=== PATIENT | male | born 1950 | race American Indian/Alaskan Native ===

== ENCOUNTER 2016-10-24 10:43 | Outpatient (CLI) | payer BC, MEDICARE ==
[2016-10-24 11:26] LABS: Blood Urea Nitrogen 12 mg/dL (9-20)
--- NOTE | 2016-10-24 15:31 | Magnetic Resonance Report ---
MRI scan of brain: History: Left lower extremity weakness. Technique: Multiplanar multisequence images were obtained without and with IV contrast. Findings: No evidence of restricted diffusion. Ventricles are normal in size and midline in location. No evidence of acute ischemia hemorrhage or mass. No extra-axial fluid collection. Normal brainstem and cerebellum. Normal sinuses and mastoid air cells. Impression: No acute intracranial abnormality.
== END 2016-10-24 10:44 | disposition home or self-care (01) ==
LOC: MRI 10:43
PROVIDERS: ATTEND Family Medicine
DX: R53.1 Weakness (principal); I10 Essential (primary) hypertension
CPT/HCPCS: 36415; 70553; 82565; 84520; A9577

== ENCOUNTER 2017-05-21 16:33 | Outpatient (CLI) | payer MEDICARE ==
[2017-05-21 17:04] LABS: Blood Urea Nitrogen 11 mg/dL (9-20)
--- NOTE | 2017-05-23 09:56 | Magnetic Resonance Report ---
MR LOWER EXTREMITY JOINT LEFT WITH AND WITHOUT CONTRAST History: Left hip pain. Technique: Multisequence, multiplanar MRI before and after IV gadolinium was performed through the left hip. Findings: No comparison. There is near complete superior joint space loss at the left hip. Articular surface sclerosis and multiple subchondral cysts are noted in the left femoral head and left acetabulum. This has the appearance of moderate to severe osteoarthritis. There is moderate left hip effusion. The T1 images suggest an approximate 1.5 x 1.0 cm area of possible osteonecrosis in the superior left femoral head. It is unclear if these findings are secondary to the advanced degenerative changes or focal osteonecrosis. No evidence for fracture, bone lesion, or dislocation. The labrum is poorly visualized with no obvious defect. Surrounding musculature is within normal limits. No evidence for abnormal enhancement following IV gadolinium. IMPRESSION: Advanced osteoarthritic changes at the left hip. Questionable small area of osteonecrosis in the superior left femoral head.
--- NOTE | 2017-05-23 10:05 | Magnetic Resonance Report ---
MRI LUMBAR SPINE WITH AND WITHOUT CONTRAST HISTORY: Low back pain. TECHNIQUE: axial T1, T2. sagittal T1,T2, STIR. COMPARISON: none. FINDINGS: The conus terminates at L1. No signal abnormality or mass. The cauda equina is within normal limits. 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 There is mild disc desiccation at L2-3 and L4-5. No large bulging disc or herniation. Mild to moderate facet arthropathy is identified at all levels. Mild diffuse thickening of the ligamentum flavum. No significant neural foraminal narrowing is demonstrated. There is normal bone marrow signal throughout the lumbar spine. No evidence for fracture, bone lesion or abnormal enhancement following IV gadolinium. IMPRESSION: No evidence for fracture, malalignment or abnormal enhancement. Mild degenerative disc disease at L2-3 and L4-5. Mild to moderate diffuse facet arthropathy. There is no evidence for focal bulging disc or herniation, however, there does appear to be mild central canal narrowing at L2-3, L3-4 and L4-5 secondary to congenital short pedicles.
== END 2017-05-21 16:34 | disposition home or self-care (01) ==
LOC: MRI 16:33
PROVIDERS: ATTEND Family Medicine
DX: M16.12 Unilateral primary osteoarthritis, left hip (principal); M51.36 Other intervertebral disc degeneration, lumbar region; M54.16 Radiculopathy, lumbar region
CPT/HCPCS: 36415; 72158; 73723; 82565; 84520; A9577

== ENCOUNTER 2017-06-29 11:18 | Outpatient (CLI) | payer MEDICARE ==
--- NOTE | 2017-06-29 19:22 | XRay Report ---
FINAL REPORT PROCEDURE: XR HIP 2-3V LT TECHNIQUE: LEFT hip radiographs, 2 views each, including AP view of the pelvis. HISTORY: BALL CALIBRATION. Hip pain. COMPARISON: No prior studies are available for comparison. FINDINGS: Subchondral cyst formation is seen in the roof of the left acetabulum measuring up to 14 millimeters in size. Smaller subchondral cysts appear to be present in the left femoral head. There is narrowing of the left hip joint space superiorly. There is sclerosis of the opposing surfaces. No fracture or dislocation is seen. There is sclerosis of the right hip and minimal subchondral cyst formation laterally in the acetabulum. Right hip joint otherwise well preserved. Mild degenerative changes seen in the SI joints bilaterally per IMPRESSION: Moderate osteoarthritic changes left hip. No fracture or subluxation is seen. Mild osteoarthritic changes right hip and SI joints.
== END 2017-06-29 11:19 | disposition home or self-care (01) ==
LOC: XRAY 11:18
PROVIDERS: ATTEND Orthopaedic Surgery
DX: M16.0 Bilateral primary osteoarthritis of hip (principal); M25.852 Other specified joint disorders, left hip

== ENCOUNTER 2017-10-06 10:58 | Outpatient (CLI) | payer MEDICARE ==
--- NOTE | 2017-10-06 12:08 | XRay Report ---
LEFT HIP, 2 views: History: Pain in left hip. Findings: Left hip arthroplasty changes are identified which appear stable since 07/19/17. There is no evidence for acute fracture or, dislocation, loosening or infection. The soft tissues are unremarkable. IMPRESSION: Stable appearance of the left hip replacement.
== END 2017-10-06 10:59 | disposition home or self-care (01) ==
LOC: XRAY 10:58
PROVIDERS: ATTEND Orthopaedic Surgery
DX: M25.552 Pain in left hip (principal); I10 Essential (primary) hypertension; E78.00 Pure hypercholesterolemia, unspecified; E03.9 Hypothyroidism, unspecified; F17.210 Nicotine dependence, cigarettes, uncomplicated; Z96.642 Presence of left artificial hip joint

== ENCOUNTER 2017-12-23 12:24 | Outpatient (CLI) | payer MEDICARE ==
--- NOTE | 2017-12-23 13:47 | XRay Report ---
LEFT HIP, 2 views: History: Pain in left hip. Left hip prosthesis is unchanged in position and alignment since 10/06/17. No evidence for fracture, loosening or dislocation. The soft tissues are unremarkable. IMPRESSION: Stable appearance of the left hip prosthesis.
== END 2017-12-23 12:25 | disposition home or self-care (01) ==
LOC: XRAY 12:24
PROVIDERS: ATTEND Orthopaedic Surgery
DX: M25.552 Pain in left hip (principal); I10 Essential (primary) hypertension; E78.00 Pure hypercholesterolemia, unspecified; K21.9 Gastro-esophageal reflux disease without esophagitis; E66.9 Obesity, unspecified; Z87.891 Personal history of nicotine dependence; Z96.642 Presence of left artificial hip joint

== ENCOUNTER 2020-09-26 12:31 | Day surgery (SDC) | payer MEDICARE ==
[2020-09-21 11:12] LABS: Hematocrit 45.2 % (35.5-45.6); Hemoglobin 15.4 gm/dl (11.8-15.2); Mean Corpuscular HGB Conc 34 % (32-34); Mean Corpuscular Volume 89 fl (84-94); Platelet Count 289 K/mm3 (140-440); Red Blood Count 5.09 M/mm3 (3.65-5.03); Red Cell Distribution Width 13.7 % (13.2-15.2)
[2020-09-21 11:26] LABS: Alanine Aminotransferase 36 units/L (7-56); Albumin 4.7 g/dL (3.9-5); BUN/Creatinine Ratio 11; Blood Urea Nitrogen 10 mg/dL (9-20); Calcium 10.1 mg/dL (8.4-10.2); Hemolysis Index 20
[2020-09-26] MEDS ORDERED: LACTATED RINGERS 1,000 ML IV SCH (13:00)
[2020-09-26] MEDS ORDERED: ACETAMINOPHEN 500 MG TAB PO SCH (13:13)
[2020-09-26] MEDS ORDERED: MIDAZOLAM 2 MG/2 ML INJ IV NR (13:13)
[2020-09-26] MEDS ORDERED: CELECOXIB 200 MG CAP PO NR (13:13)
--- NOTE | 2020-09-26 13:20 | Anesthesia Day of Surgery ---
Anesthesia Day of Surgery - Day of Surgery Patient Examined: Yes Patient H&P Reviewed: Yes Patient is NPO: Yes
--- NOTE | 2020-09-26 13:22 | Anesthesia Consultation ---
Anesthesia Consult and Med Hx Date of service: 09/26/20 - Airway Anesthetic Teeth Evaluation: Good ROM Head & Neck: Adequate Mental/Hyoid Distance: Adequate Mallampati Class: Class II Intubation Access Assessment: Good - Pre-Operative Health Status ASA Pre-Surgery Classification: ASA2 Proposed Anesthetic Plan: General - Pulmonary Hx Smoking: Yes (STOPPED 11/2019-1 PPD X 42 YRS) Hx Asthma: No SOB: No (PURI) COPD: Yes (PER OLD CHART- PT DENIES) Hx Sleep Apnea: No (YAMILEX PRE SCREEN HIGH RISK) - Cardiovascular System Hx Hypertension: Yes (X 42 YRS) - Central Nervous System Hx Seizures: No CVA: No Hx Back Pain: Yes Hx Psychiatric Problems: No - Gastrointestinal Hx Gastroesophageal Reflux Disease: Yes (Rare) - Endocrine Hx Cirrhosis: No Hx Non-Insulin Dependent Diabetes: No Hx Hypothyroidism: No - Hematic Hx Anemia: No Hx Sickle Cell Disease: No - Other Systems Hx Cancer: No Hx Obesity: Yes
[2020-09-26] MEDS ORDERED: propofoL 200 MG/20 ML VIAL IV ONE (13:28)
[2020-09-26] MEDS ORDERED: LIDOCAINE MPF (2%) 20 MG/1 ML VIAL 5 ML ONE (13:28)
[2020-09-26] MEDS ORDERED: HYDROmorphone 1 MG/1 ML INJ ONE ×2 (13:28→15:39)
[2020-09-26] MEDS ORDERED: ACETAMINOPHEN 500 MG TAB ONE (13:30)
[2020-09-26] MEDS ORDERED: CELECOXIB 200 MG CAP ONE (13:30)
[2020-09-26] MEDS ORDERED: MIDAZOLAM 2 MG/2 ML INJ ONE (13:31)
[2020-09-26] MEDS ORDERED: ceFAZolin/Water 2 GM/20 ML 2 GM/20 ML SYRINGE IV NR (14:00)
[2020-09-26] MEDS ORDERED: ceFAZolin/Water 2 GM/20 ML 2 GM/20 ML SYRINGE IV ONE (14:00)
[2020-09-26] MEDS ORDERED: BUPIVACAINE/PF (0.25%) 2.5 MG/ML 30 ML VIAL INFILTRATI ONE (14:03)
[2020-09-26] MEDS ORDERED: NEOMY 3.5 MG/BACIT 400 UNITS/POLY B 5000 UNITS/GM OINT PACKET TP ONE (14:03)
--- NOTE | 2020-09-26 14:18 | Discharge Summary ---
Short Stay Discharge Plan Activity: other (no sex no straining ) Weight Bearing Status: Full Weight Bearing Diet: low fat, low cholesterol, low salt Wound: open to air Special Instructions: other (ice in rr remove dressing tonight ) Follow up with: FABI RIOS MD [Primary Care Provider] - 7 Days RED THOMPSON MD [Staff Physician] - 7 Days
--- NOTE | 2020-09-26 14:19 | Post Operative Note ---
Date of procedure: 09/26/20 Pre-op diagnosis: phimosis Post-op diagnosis: same Findings: inflammation Procedure: circ Anesthesia: GETA Surgeon: RED THOMPSON Estimated blood loss: minimal Pathology: list (skin) Specimen disposition: to lab
[2020-09-26] MEDS ORDERED: BUPIVACAINE/PF (0.25%) 2.5 MG/ML 10 ML VIAL INFILTRATI ONE (14:46)
[2020-09-26] MEDS ORDERED: SODIUM CHLORIDE 0.9% IRR 1,500 ML BOTTLE IR ONE (14:47)
[2020-09-26] MEDS ORDERED: NEOMY 3.5 MG/BACIT 400 UNITS/POLY B 5000 UNITS OINT 15 GM TP ONE (14:47)
[2020-09-26] MEDS ORDERED: ONDANSETRON 4 MG/2 ML INJ ONE (15:12)
[2020-09-26] MEDS ORDERED: KETOROLAC 30 MG/1 ML INJ ONE (15:12)
[2020-09-26] MEDS ORDERED: HYDROmorphone 1 MG/1 ML INJ IV PRN (16:30)
--- NOTE | 2020-09-26 17:06 | Post Anesthesia Evaluation ---
- Post Anesthesia Evaluation Patient Participated: Yes Airway Patent: Yes Stable Respiratory Function: Yes Nausea/Vomiting: No Temp > 96.8F: Yes Pain Manageable: Yes Adequeate Hydration: Yes Anesthesia Complications: No Block Receding Appropriately: Not Applicable Patient on Ventilator: No
[2020-09-26 17:22] VITALS: BP 144/99
--- NOTE | 2020-09-26 17:28 | Operative Report ---
DATE OF SURGERY: 09/26/2020 PREOPERATIVE DIAGNOSES: Severe phimosis, balanitis with cracking and bleeding of the inner foreskin. POSTOPERATIVE DIAGNOSES: Severe phimosis, balanitis with cracking and bleeding of the inner foreskin. PROCEDURES: Circumcision, sleeve technique. SURGEON: Dr. Martini. ANESTHESIA: General. FINDINGS: This is a gentleman with bleeding and cracking of the foreskin. Now presents for circumcision. He has scars in the inner foreskin. DESCRIPTION OF PROCEDURE: The patient was brought to the operating table. Following induction of anesthesia, placed in the supine position, prepped and draped in usual sterile fashion. Two circumferential incisions were marked out and incised. This was connected dorsally. There was superficial vascularity from the inflammation. Small veins were tied or cauterized as needed. Hemostasis was excellent. At this point, once the skin was excised the sutures were placed 12, 3 and 6 and 9 o'clock position. Each quadrant was bisected and sutured with 3-0 chromic. The patient tolerated the procedure well. No significant complication. Minimal blood loss. He was brought to recovery in stable condition. TID: [id number] RECEIPT: [id number] DAKOTA/HEATHER
== END 2020-09-26 16:52 | disposition home or self-care (01) ==
LOC: OR 12:31
PROVIDERS: ATTEND Urology
DX: N47.1 Phimosis (principal); N48.1 Balanitis; Z20.822 Contact with and (suspected) exposure to COVID-19; N48.89 Other specified disorders of penis; H40.9 Unspecified glaucoma; E78.00 Pure hypercholesterolemia, unspecified; I10 Essential (primary) hypertension; J44.9 Chronic obstructive pulmonary disease, unspecified; K21.9 Gastro-esophageal reflux disease without esophagitis; E66.9 Obesity, unspecified; M19.90 Unspecified osteoarthritis, unspecified site; Z98.890 Other specified postprocedural states; Z79.899 Other long term (current) drug therapy; Z79.82 Long term (current) use of aspirin; Z87.891 Personal history of nicotine dependence; Z98.49 Cataract extraction status, unspecified eye; Z68.35 Body mass index [BMI] 35.0-35.9, adult; Z87.442 Personal history of urinary calculi; Z86.2 Personal history of diseases of the blood and blood-forming organs and certain disorders involving the immune mechanism
CPT/HCPCS: 36415; 54161; 80053; 85027; 88304; A6250; J0690; J1170; J1885; J2250; J2405; J2704; J7120; U0003

== ENCOUNTER 2020-11-02 10:53 | Outpatient (CLI) | payer MEDICARE ==
--- NOTE | 2020-11-02 12:04 | XRay Report ---
RIGHT HIP 3 VIEWS INDICATION: RIGHT HIP PAIN. COMPARISON: 12/23/2017 IMPRESSION: No acute osseous or soft tissue abnormality. Minimal degenerative changes are noted a t the right hip which are unchanged. The left hip prosthesis is partially visualized but unremarkable . There are approximately 4 new calcifications in the right side of the pelvis measuring up to 1.2 cm . The etiology of these are unclear. These calcifications overlie the right side of the bladder/right UVJ region. Correlate with the patient and consider CT if further evaluation is needed. Signer Name: Ky Shah Jr, MD Signed: 11/02/2020 12:00 PM Workstation Name: [id number]
== END 2020-11-02 10:54 | disposition home or self-care (01) ==
LOC: XRAY 10:53
PROVIDERS: ATTEND Orthopaedic Surgery
DX: M16.11 Unilateral primary osteoarthritis, right hip (principal)

== ENCOUNTER 2021-05-01 12:00 | Outpatient (CLI) | payer MEDICARE ==
--- NOTE | 2021-05-01 15:26 | XRay Report ---
RIGHT SHOULDER 3 VIEWS INDICATION: Right shoulder pain. COMPARISON: No relevant prior imaging study available. FINDINGS: No acute skeletal abnormality. There is moderate acromioclavicular degenerative change with laterally downsloping distal acromion that could result in encroachment. There is a small osteophyte inferior humeral head. IMPRESSION: 1. No acute findings. Degenerative changes as above. RIGHT HIP AND PELVIS 3 VIEWS INDICATION: Right hip pain. COMPARISON: 11/02/2020 FINDINGS: No acute skeletal abnormality. Superior joint space narrowing is again noted at the right hip. There is pistol egg buyer deformity which could result in femoral acetabular impingement. Punctate calcific dens ities are again noted in the pelvis. These could be bladder stones but are nonspecific. Left hip arthroplasty has a satisfactory appearance. IMPRESSION: 1. No acute findings. Degenerative findings as above. Signer Name: Marco Lucia MD Signed: 05/01/2021 3:21 PM Workstation Name: [email or web address]
--- NOTE | 2021-05-01 15:26 | XRay Report ---
RIGHT SHOULDER 3 VIEWS INDICATION: Right shoulder pain. COMPARISON: No relevant prior imaging study available. FINDINGS: No acute skeletal abnormality. There is moderate acromioclavicular degenerative change with laterally downsloping distal acromion that could result in encroachment. There is a small osteophyte inferior humeral head. IMPRESSION: 1. No acute findings. Degenerative changes as above. RIGHT HIP AND PELVIS 3 VIEWS INDICATION: Right hip pain. COMPARISON: 11/02/2020 FINDINGS: No acute skeletal abnormality. Superior joint space narrowing is again noted at the right hip. There is pistol improvement director deformity which could result in femoral acetabular impingement. Punctate calcific dens ities are again noted in the pelvis. These could be bladder stones but are nonspecific. Left hip arthroplasty has a satisfactory appearance. IMPRESSION: 1. No acute findings. Degenerative findings as above. Signer Name: Marco Lucia MD Signed: 05/01/2021 3:21 PM Workstation Name: [email or web address]
== END 2021-05-01 12:01 | disposition home or self-care (01) ==
LOC: XRAY 12:00
PROVIDERS: ATTEND Orthopaedic Surgery
DX: M19.011 Primary osteoarthritis, right shoulder (principal); M16.11 Unilateral primary osteoarthritis, right hip